=== PATIENT | female | born 1965 | race Caucasian/White ===

== ENCOUNTER → 2019-07-09 | Day surgery (SDC) | payer OTHER ==
[~2019-07-09] MED LIST: BUPIVACAINE HCL 0.5% INJ 30 ML VIAL INJ ONE; CEFAZOLIN SOD 1 GM VIAL ONE; CEFAZOLIN SOD 1 GM/NS 50ML 50 ML IV ONE; DEXAMETHASONE SOD PHOS INJ 4 MG/ML VIAL ONE; FENTANYL CITRATE/PF 100MCG/2 ML INJ ONE; KETOROLAC TROMETHAMINE 30 MG/ML VIAL ONE; LEVOTHYROXINE75 MCG PO; LIDOCAINE HCL 2% LOCAL INJ 5 ML SDV VIAL INJ ONE; LIOTHYRONINE SO5 MCG PO; MAGNESIUM500 MG PO; NERLYNX40 MG PO; ONDANSETRON HCL INJ 2MG/ML 2ML 2 MG/ML VIAL ONE; PROPOFOL IV EMULSION 10 MG/ML 20 ML VIAL ONE; SEVOFLURANE INHAL SOLN 250 ML PEN BTL ONE; TAMOXIFEN CITRA10 MG PO; VITAMIN D34000 UNIT PO
[2019-07-09 09:35] VITALS: BP 110/76
--- NOTE | 2019-07-09 12:28 | Operative Report ---
DATE OF PROCEDURE: 07/09/2019 SURGEON: Delores Angel DPM PREOPERATIVE DIAGNOSES: 1. Left hallux valgus. 2. Left heel spur. POSTOPERATIVE DIAGNOSES: 1. Left hallux valgus. 2. Left heel spur. PLANNED PROCEDURES: Left Rolando bunionectomy with 1st metatarsal osteotomy and internal fixation, left excision of heel spur. RUBBISH COLLECTOR: None. ANESTHESIA: General with a postoperative block consisting of 20 mL of 0.5% Marcaine plain mixed with 1 mL of dexamethasone phosphate. HEMOSTASIS: Pneumatic thigh tourniquet set at 350 mmHg for a total time of approximately 45 minutes. MATERIALS: Two 2.0 mm x 12 and 14 mm cortical bone screws, Synthes. 2-0 Vicryl, 3-0 Vicryl, 4-0 Prolene. ESTIMATED BLOOD LOSS: Less than 10 mL. PATHOLOGY: None. PROCEDURE NOTE: The patient was seen in the preoperative waiting room. The correct procedure and site were identified. The patient was brought into the operating room and placed on the operating table in the supine position. General anesthesia was initiated. At this time, a well-padded pneumatic tourniquet was placed about the patient's left thigh. The left foot, ankle, leg were scrubbed, prepped, and draped in the usual aseptic manner. The left foot, ankle, and leg were exsanguinated with an Esmarch bandage. The pneumatic thigh tourniquet was inflated to 350 mmHg for a total time of approximately 45 minutes. Attention was directed to the dorsomedial aspect of the patient's left 1st metatarsophalangeal joint, where a 5 cm curvilinear incision was made. The incision was carried through the subcutaneous tissue with from deep underlying structures. All vital and neurovascular structures were identified, retracted medially and laterally. All bleeders were cauterized or ligated as deemed necessary. Through the same incision, a full lateral release was performed consisting of the deep transverse ligament, lateral collateral ligament, and the fibular sesamoidal ligament. Attention was directed back to the 1st metatarsophalangeal joint, where an inverted L-capsulotomy was performed to allow for good visualization of the 1st metatarsal head. Utilizing a sagittal saw, the medial eminence was resected and passed off the back table. A [id number] Chevron osteotomy was performed with a dorsal wing longer to allow for proper fixation. The capital fragment was transposed laterally approximately 3 to 5 mm and impacted onto the shaft of the metatarsal. This was temporary fixated with a K-wire. Permanent fixated utilizing techniques of a fixation with two 2.0 mm x 12 and 14 mm cortical bone screws. The fixation site is stable. The remainder of the medial eminence after the transposition was resected and passed off the back table. The wound was then copiously irrigated with sterile saline. Capsule and deep tissue were reapproximated with 2-0 Vicryl, subcutaneous tissue with 3-0 Vicryl, and the skin was closed using a running interlocking stitch with 4-0 Prolene. Attention was directed to the medial plantar aspect of the patient's left heel, where a 4 cm linear incision was made. The incision was carried through the subcutaneous tissue, them from deep or underlying structures. All vital and neurovascular structures were identified, retracted medially and laterally, and all bleeders were cauterized or ligated as deemed necessary. Plantar fasciotomy was performed approximately 1/3 to 1/2 to the level of the heel spur. The heel spur was then identified. Utilizing osteotome and malldaron ronrajaniur and a bone rasp, the heel spur was resected and passed off to the back table. The wound was then copiously irrigated with sterile saline. Intraoperative fluoroscopy was used to confirm that the heel spur had been resected. One size #10 TLS drain was placed. Deep tissues were reapproximated with 3-0 Vicryl, subcutaneous tissue with 3-0 Vicryl, and the skin was closed using a running interlocking stitch of 4-0 Prolene. PLAN: The patient tolerated the procedure and anesthesia well. The patient was transferred to the postoperative recovery with vital signs stable and vascular status intact. The patient was monitored there for a short period time before being sent home with the following written and oral instructions. 1. Keep the dressing clean, dry, and intact. 2. The patient is to remain nonweightbearing to the left lower extremity and to avoid any ambulation until being seen in the office. 3. The patient was given office number should contact us if any problems arise. Delores Angel DPM MAF/MODL /[id number]
== END | disposition home or self-care (01) ==
LOC: OR 05:22
PROVIDERS: ATTEND Podiatrist Foot & Ankle Surgery
DX: M77.32 Calcaneal spur, left foot (principal); M20.12 Hallux valgus (acquired), left foot; Z01.810 Encounter for preprocedural cardiovascular examination; B15.9 Hepatitis A without hepatic coma; G47.33 Obstructive sleep apnea (adult) (pediatric); F41.9 Anxiety disorder, unspecified; E03.9 Hypothyroidism, unspecified
CPT/HCPCS: 28119; 28296; 81025; 93005; C1713 ×3; J0690 ×2; J1100; J1885; J2001; J2405; J2704; J3010